=== PATIENT | female | born 1990 | race Caucasian/White ===

== ENCOUNTER 2019-11-29 17:53 | Inpatient (IN) | payer BC ==
[2019-11-29] MEDS ORDERED: Dinoprostone* 10 MG VAG.SUPP VAGINAL ONE (18:01)
[2019-11-29] MEDS ORDERED: hydrOXYzine HCL TAB* 50 MG PO PRN (20:02)
--- NOTE | 2019-11-29 20:09 | HP ---
General Information - Reason for Visit IUP at 41-11/27 here for postdates induction of labor - General Information Maternal Age: 29 Grav: 1 Para: 0 SAB: 0 IEA: 0 Estimated Due Date: 11/21/19 Determined By: LMP Maternal Blood Type and Rh: B Positive - Results this Serology/RPR Result: Non-Reactive Rubella Result: Immune HBsAg Result: Negative HIV Result: Negative GBS Culture Result: Negative Past Medical History Delivery History: See Records Delivery History Comment: Primip Pertinent Past Medical History: See Records Past Medical History Comment: Anxiety. Followed by an area therapist Pertinent Past Surgical History: See Records Past Surgical History Comment: 2013 LEEP - RUSTY 2 Pertinent Family History: See Records Family History Comment: PGF: , pancreatic cancer - Antepartal Records Antepartal Records: Reviewed, Uncomplicated Review of Systems Constitutional: Comfortable CV Complaint: No Respiratory: Shortness of Breath: No Gastrointestinal: No Nausea/Vomiting, Normal Bowel Movement Genitourinary: No Dysuria, No Bleeding, No Leaking Fluid Musculoskeletal: No Complaint, No Epigastric Pain Neurological: No Headache, No Visual Changes Movement: Normal Exam Allergies/Adverse Reactions: Allergies No Known Allergies Allergy (Verified 11/29/19 18:23) BP 129/83 HR 94 RR 18 T 98.5 SpO2 99% on RA - Measurements Height: 5 ft 3 in Weight: 170 lb Weight in lbs: 168.985443 Body Mass Index (BMI): 30.1 Pre- Weight: 125 lb Weight Gained This : 43 lbs and 0 ozs - Exam Breast: Breast Exam Deferred CVA: No CVA Tenderness Extremities: No Edema Heart: Normal Rhythm/Heart Sounds HEENT: No Significant Findings Lungs: Clear Bilaterally Rectal: Rectal Exam Deferred Reflexes: DTR 2+ Thyroid: No Thyromegaly - Abdominal Exam Abdomen Exam: Non-Tender, Fundal Height Consistent with Dates - Ultrasound/Biophysical Profile Ultrasound Status: Not Done Targeted Exam Findings See L&D Outpatient Visit Provider Note for Findings: N/A Cervical Exam: Closed Effacement: 50% Station: -2 Presenting Part: Vertex Membrane Status: Intact Sterile Speculum Exam: Not done Bleeding/Discharge: None EFM Findings - External Monitor Findings Baseline Heart Rate: 130 External Monitor Findings: Accelerations Present, No Pattern of Variable or Late Decelerations, Variability Moderate, Baseline Stable External Monitor Findings Comment: No evidence of metabolic acidemia Contractions: Irregular, Mild Contraction Frequency: q 3-8 min Assessment/Plan - Assessment IUP at 41-1/7 here for postdates induction Cervix unfavorable for induction No evidence of metabolic acidemia - Obstetrical Risk Factors Obstetrical Risk Factors: Post-Dates - Plan Plan: Cervical Ripening Plan Comment: PARQ cervical ripening with Cervidil. Pt agrees. Medication placed at 1920. Pt tolerated well. Monitor per protocol and plan removal in 12-18 hours or sooner PRN tachysystole, onset active labor, intolerance. Encouraged rest overnight. Order for Vistaril PRN sleep given. Re-evaluate in the morning or sooner PRN. Dr. Matt aware of pt presence and condition. Agrees with plan - Date/Time of Admission Date of Admission: 11/29/19 Time of Admission: 17:59
[2019-11-29 20:19] LABS: Urine Benzodiazepine Screen None Detected (None Detect); Urine Opiates Screen None Detected (None Detect)
--- NOTE | 2019-11-30 08:44 | PN ---
Progress Note - Progress Note Date of Service: 11/30/19 Note: S: Ripening/IOL for postdates. Pt is resting in bed. Notes started feeling some cramping at 0300 AM, unable to sleep through. The intense cramping has subsided , but still feeling menstrual-like cramps. Denies lof/vb, active FM. O: 99.1, 18, 120/82, HR 79 FHR: 145, +accels, no decels, moderate variability Contractions: 2-3 minutes, palpate mild VE: closed/65%/-2, firm, posterior Cervidil removed A: , IUP@41+2, not in labor GBS negative, B+ No evidence of metabolic acidemia Regular contractions, good resting tone Tolerated cervidil removal without complaint P: Actively loyda at this time. Will hold additional ripening/induction medications at this time. Monitor pt per protocol. PARQ discussion with pt about misoprostol. Agrees with plan. Will reassess in 2 hrs. Encourage movement and position changes to encourage optimal positioning Anticipate progression to active labor
--- NOTE | 2019-11-30 14:15 | PN ---
Progress Note - Progress Note Date of Service: 11/30/19 Note: S: Ripening/IOL for postdates. Pt is resting in bed with monitors on. Reports moderately painful contractions, breathing through. Denies lof/vb, active FM. and mother at bedside, supportive. O: 99.3, 18, 103/66, HR 77 FHR: 145, +accels, no decels, moderate variability Contractions: 2-3 minutes, palpate firm VE: FT/65%/-2, softening, posterior A: , IUP@41+2, not in labor GBS negative, B+ No evidence of metabolic acidemia Regular contractions, good resting tone P: PARQ discussion about starting Pitocin to augment early labor Pt declines at this time. Would like to see if natural labor progresses. Plan to reassess cervix in 2-3 hours. Encourage movement and position changes to encourage optimal positioning Anticipate progression to active labor
[2019-11-30] MEDS ORDERED: Oxytocin in LR* 20 UNITS/1,000 ML BAG IVPB SCH (15:00)
[2019-11-30 15:48] LABS: ABS Monocytes 0.5 10^3/ul (0-0.8); ABS Neutrophils 8.2 10^3/ul (1.5-7.7); Eosinophil % 0.3 %; Hematocrit 42 % (35-47); Lymphocyte % 10.2 %; Mean Corpuscular HGB Conc 34 g/dL (31-36); Mean Corpuscular Hemoglobin 34 pg (27-31); Mean Corpuscular Volume 100 fL (80-97); Mean Platelet Volume 9.4 fL (7.4-10.4); Platelet Count 193 10^3/uL (150-450); Red Blood Count 4.16 10^6 /uL (3.70-4.87); Red Cell Distribution Width 14 % (10-15); White Blood Count 9.8 10^3/uL (3.5-10.8)
[2019-11-30] MEDS: Lactated Ringers 1000 ML Bag* 1,000 ML IV ONE (19:59)
--- NOTE | 2019-11-30 20:03 | PN ---
Progress Note - Progress Note Date of Service: 11/30/19 Note: S: Ripening/IOL for postdates. Pt is OOB. Reports contractions have subsided. Denies lof/vb, active FM. and mother at bedside, supportive. O: FHR: 145, +accels, no decels, moderate variability Contractions: 4 minutes, palpate mild VE: FT/75%/-2, softening, thin external os A: , IUP@41+2, not in labor GBS negative, B+ VSS No evidence of metabolic acidemia Regular contractions, good resting tone P: PARQ discussion about starting Pitocin to augment early labor Will start low-dose Pitocin Encourage movement and position changes to encourage optimal positioning Anticipate progression to active labor
[2019-12-01] MEDS ORDERED: hydrOXYzine HCL TAB* 50 MG PO ONE ×2 (00:39→22:00)
--- NOTE | 2019-12-01 00:45 | PN ---
Progress Note - Progress Note Date of Service: 12/01/19 Note: S: Ripening/IOL for postdates. Pt is OOB. Reports contractions have subsided. Denies lof/vb, active FM. and mother at bedside, supportive. O: FHR: 145, +accels, no decels, moderate variability Contractions: 4 minutes, palpate mild VE: FT/75%/-2, softening, thin external os Pitocin @6mU A: , IUP@41+2, not in labor GBS negative, B+ VSS No evidence of metabolic acidemia Regular contractions, good resting tone No cervical change P: Will discontinue Pitocin for now so pt can sleep PO Vistaril for sleep aid Will restart ripening/IOL in the AM Anticipate progression to active labor
[2019-12-01] MEDS ORDERED: Misoprostol TAB* 100 MCG PO ONE ×2 (08:23→12:45)
--- NOTE | 2019-12-01 08:30 | PN ---
Progress Note - Progress Note Date of Service: 12/01/19 Note: Feeling rested, not many UCs. O: B/P: 90/58, P: 95, R: 16, T: 100.7 temporal, 98.1 oral on repeat FHR: baseline 135, moderate variability, +accelerations, no decelerations UCs: qq6-10 min, mild VE deferred, FT/75/-2 at midnight A: IUP at 41 3/7 weeks Category I FHR, no evidence of metabolic acidemia Not in labor Hill score: 3 P: Discussed trial of 50 mcg oral misoprostol for ripening, pt agrees Reassess PRN Anticipate SVB
--- NOTE | 2019-12-01 12:39 | PN ---
Progress Note - Progress Note Date of Service: 12/01/19 Note: S: Sitting at the edge of the bed, not feeling any UCs currently. Reports intense but infrequent UCs first 45 minutes after first dose of misoprostol at 0842. O: B/P: 112/74, P: 92, R: 16, T: 99.8 FHR: baseline 130, moderate variability, +accelerations, no decelerations UCs : q5-10 mins, mild, not felt by pt A: IUP at 41 3/7 weeks Category I FHR, no evidence of metabolic acidemia Not yet in labor P: Repeat dose of misoprostol at 1245, follow monitoring protocol Reassess PRN Anticipate SVB
[2019-12-01] MEDS ORDERED: Ondansetron INJ* 2 MG/ML VIAL IV PRN (20:46)
--- NOTE | 2019-12-01 20:56 | PN ---
Progress Note - Progress Note Date of Service: 12/01/19 Note: S: Breathing through UCs, has been having nausea and vomiting O: B/P: 114/77, P: 75, R: 20, T: 99.3 FHR: baseline 135, moderate variability, +accelerations, no decelerations UCs: q3-5, moderate to palpation VE: FT/80/-2, funneled. Very thin internal os A: IUP at 41 3/7 weeks Category I FHR, no evidence of metabolic acidemia Hill Score: 3 P: Discussed options including expectant management, pitocin augmentation, and cervidil overnight. Opts for cervidil. IV Zofran for nausea/vomiting Reassess PRN Anticipate SVB
[2019-12-01] MEDS ORDERED: Dinoprostone* 10 MG VAG.SUPP VAGINAL ONE (21:00)
[2019-12-02] MEDS ORDERED: Promethazine INJ(RESTRICTED)* 25 MG/ML 1 ML VIAL IV ONE (05:30)
[2019-12-02] MEDS ORDERED: fentaNYL* 50 MCG/ML 2 ML VIAL (100 MCG VIAL) IV SLOW PU ONE (05:30)
--- NOTE | 2019-12-02 08:31 | PN ---
Progress Note - Progress Note Date of Service: 12/02/19 Note: S: Breathing through UCs, able to rest somewhat after pain medication O: B/P: 105/59, P: 74, R: 20, T: 99.0 FHR: baseline 135, moderate variability, +accelerations, no decelerations UCs: q5, moderate to palpation, some coupling VE: Deferred, cervidil in place (last check /-2, funneled, very thin external os) A: IUP at 41 5/7 weeks Category I FHR, no evidence of metabolic acidemia Hill Score: 3 P: Discussed options including Pitocin augmentation, misoprostol, and potentially if no dilation Will decide after cervidil removed at 1000 and repeat VE Anticipate SVB
--- NOTE | 2019-12-02 13:34 | PN ---
Progress Note - Progress Note Date of Service: 12/02/19 Note: S: Breathing through UCs. Lost mucous plug in bath. Reports bloody show. Contractions 3-5 minutes. O: FHR: baseline 125, moderate variability, +accelerations, no decelerations UCs: q3-5, moderate to palpation VE: 4/100/-1, AROM, meconium A: IUP at 41 5/7 weeks Category I FHR, no evidence of metabolic acidemia P: Discussed augmenting labor with pitocin, pt would like to see if her body will continue to contract and labor on her own Plan for assessment at 1500, if contractions still 3-5, will consider Pitocin Epidural prn Anticipate SVB
[2019-12-02] MEDS: Lactated Ringers 1000 ML Bag* 1,000 ML IV ONE (16:41)
--- NOTE | 2019-12-02 16:49 | PN ---
Progress Note - Progress Note Date of Service: 12/02/19 Note: S: Breathing through UCs. Using nitrous oxide with inadequate pain relief. Requesting vaginal exam and epidural. O: FHR: baseline 125, moderate variability, +accelerations, no decelerations UCs: q3-5, moderate to palpation VE: 4.5/100/-1 A: IUP at 41 5/7 weeks Category I FHR, no evidence of metabolic acidemia P: Epidural now Notified anesthesia
[2019-12-02] MEDS ORDERED: Lactated Ringers 1000 ML Bag* 1,000 ML IV SCH ×2 (17:00→20:00)
[2019-12-02] MEDS ORDERED: OBEPIDURAL* 250 ML EPIDURAL ONE (17:01)
[2019-12-02] MEDS ORDERED: fentaNYL* 50 MCG/ML 2 ML VIAL (100 MCG VIAL) IV SLOW PU PRN (18:31)
[2019-12-02] MEDS ORDERED: Bupivacaine 0.25% SDV PF* 10 ML VIAL INJ ONE (18:41)
[2019-12-02] MEDS ORDERED: Lactated Ringers 1000 ML Bag* 1,000 ML IV ONE (19:08)
[2019-12-02] MEDS ORDERED: Sodium Citrate/Citric Acid* 15 ML UDC PO PRN (19:08)
[2019-12-02] MEDS ORDERED: Phenylephrine 40 MCG/ML SYRINGE IV PUSH PRN ×2 (19:08)
[2019-12-02] MEDS ORDERED: EPHEDrine (Pressors)* 50 MG/ML VIAL IV PUSH PRN ×2 (19:08)
[2019-12-02] MEDS ORDERED: Famotidine TAB* 20 MG PO PRN (19:08)
[2019-12-02] MEDS ORDERED: Lactated Ringers 1000 ML Bag* 500 ML IV PRN ×2 (19:08)
[2019-12-02] MEDS ORDERED: Oxytocin in LR* 20 UNITS/1,000 ML BAG IVPB ONE (19:45)
--- NOTE | 2019-12-02 19:47 | PN ---
Progress Note - Progress Note Date of Service: 12/02/19 Note: S: Pt is comfortable with epidural, resting in bed. at bedside and supportive. O: FHR: baseline 120, moderate variability, +accelerations, no decelerations UCs: q2-5, moderate to palpation VE: 5/100/-1 A: IUP at 41 5/7 weeks Category I FHR, no evidence of metabolic acidemia P: VE prn Anticipate progression to
[2019-12-02] MEDS ORDERED: OBEPIDURAL* 250 ML EPIDURAL SCH (20:00)
[2019-12-02] MEDS ORDERED: Oxytocin in LR* 20 UNITS/1,000 ML BAG IVPB SCH (20:00)
--- NOTE | 2019-12-03 02:30 | PN ---
Progress Note - Progress Note Date of Service: 12/03/19 Note: S: Pt is comfortable with epidural, resting in bed. Feeling pressure with contractions. at bedside and supportive. O: FHR: baseline 145, moderate variability, +accelerations, no decelerations UCs: q2-5, strong VE: 8/100/0 Pitocin@10mU A: IUP at 41 6/7 weeks Category I FHR, no evidence of metabolic acidemia P: VE in 2 hours or sooner prn Anticipate progression to
[2019-12-03] MEDS ORDERED: ceFOXitin 2 GM IVPREMIX* 2 GM/50 ML BAG ONE (06:28)
[2019-12-03] MEDS ORDERED: Glycerin ADULT SUPP PR PRN (07:16)
[2019-12-03] MEDS ORDERED: Acetaminophen TAB* 325 MG PO PRN (07:16)
[2019-12-03] MEDS ORDERED: Witch Hazel PAD* JAR TOPICAL PRN (07:16)
[2019-12-03] MEDS ORDERED: Dibucaine 1% 28.35 GM TUBE PR PRN (07:16)
--- NOTE | 2019-12-03 07:21 | PROCNOTE ---
[facility] OB: Delivery Note - Delivery A Date of : 12/03/19 Time of : 06:05 Gary Sex: Female Weight at : 8 lb 7 oz Score 1 Minute: 9 Score 5 Minutes: 9 Gestational Age in Weeks and Days at Delivery: 41 Weeks and 5 Days Delivery Method: Spontaneous Vaginal Labor: Induced Amniotic Fluid: Meconium Estimated Blood Loss: 600 Anesthesia/Analgesia: IM/IV, CEI for Labor, Nitrous-Labor Delivered By: Monae Pierson Nursery Level of Nursery: Regular/Bedside - Perineum Perineal Injury: 2nd Degree Perineal Injury Comment: left labium majora Perineal Repair: By Delivering Practioner - Events Delivery Events of Note: Pitocin During Labor, Full Course of Antibiotics - For manual removal of placenta, Post- Bleeding - Meds Given, Retained Placenta , Manual Removal of Placenta - Risk for Falls Delivered OB Patient- Risk for Falls: Heavy Bleeding Fall Risk: Patient is at High Risk for Falls - Additional Delivery Notes Additional Delivery Notes: Normal spontaneous vertex delivery of live female, 8lb, 7oz and Apgars 9/9. Delivered left occipital-anterior (MAGDY), with a compound arm. Body delivered without difficulty. Baby placed on mothers abdomen. Cord clamped and cut by FOB after pulsations ceased. Densely adhered placenta with anterior placentation. Dr. Alcides Mcdermott MD called for removal. Appears to be an abnormal placenta, though intact, with a 3vc. Sending placenta to pathology. Antibiotics given following manual removal. Perineum and vagina inspected - left labium laceration and a second degree perineal laceration noted. Repaired in the usual fashion, with CEI infusing under local anesthesia. Anatomy restored; lacerations hemostatic. EBL 600mL. Mom and baby stable at time of note. Baby attempting to breastfeed.
[2019-12-03] MEDS ORDERED: Oxytocin in LR* 20 UNITS/1,000 ML BAG IVPB SCH (08:00)
[2019-12-03] MEDS ORDERED: Lactated Ringers 1000 ML Bag* 1,000 ML IV SCH (08:00)
--- NOTE | 2019-12-03 08:18 | OP ---
DATE OF SURGERY: 12/03/19 - ROOM #108 DATE OF : 88 SURGEON: Niyah Mcdermott MD ANESTHESIA: Epidural. PRE-OP DIAGNOSIS: Term delivery, retained placenta. POST-OP DIAGNOSES: Term delivery, retained placenta. OPERATIVE PROCEDURE: Manual retraction of retained placenta. URINE OUTPUT: Not recorded. ESTIMATED BLOOD LOSS: 600 cc. FINDINGS: Revealed a densely adherent anterior uterine wall placentation. COMPLICATIONS: None apparent. DISPOSITION: Stable, in delivery room with baby. DESCRIPTION OF PROCEDURE: The patient underwent a verbal consent for manual extraction of retained placenta. The patient with some bleeding noted at the time of the beginning of the extraction. The patient had adequate epidural for anesthesia and using a sleeping motion, the plane was developed between the anterior uterine wall and the placenta. The placenta was removed and noted to be intact on evaluation. Sweeps x2 were performed after removal of placenta, confirming removal of all membranes and placental tissue. The patient tolerated the manual extraction well. Recommended with subsequent deliveries MD present for delivery as this is likely to happen again. The patient and are also aware of the rare complication of accreta. However, there was no evidence of this on today's manual extraction of placenta. [id number]/[facility] #: [id number] MTDD
[2019-12-03] MEDS ORDERED: Simethicone TAB* 80 MG TAB.CHEW PO SCH (08:30)
[2019-12-03] MEDS: Docusate CAP* 100 MG PO SCH ×3 (09:10→22:08)
[2019-12-03] MEDS: Ibuprofen TAB* 600 MG PO SCH ×3 (09:20→20:06)
[2019-12-03] MEDS ORDERED: Lidocaine 1% INJ* 10 MG/ML 30 ML SDV ONE (09:28)
[2019-12-04] MEDS: Ibuprofen TAB* 600 MG PO SCH ×2 (02:19→08:06)
[2019-12-04 08:13] VITALS: BP 97/65
[2019-12-04 08:35] LABS: ABS Basophils 0.1 10^3/ul (0-0.2); ABS Eosinophils 0.1 10^3/ul (0-0.6); ABS Lymphocytes 2.6 10^3/ul (1.0-4.8); ABS Neutrophils 10.1 10^3/ul (1.5-7.7); Eosinophil % 0.9 %; Hematocrit 33 % (35-47); Hemoglobin 11.2 g/dL (12.0-16.0); Lymphocyte % 18.4 %; Mean Corpuscular HGB Conc 34 g/dL (31-36); Mean Corpuscular Hemoglobin 34 pg (27-31); Mean Corpuscular Volume 100 fL (80-97); Platelet Count 170 10^3/uL (150-450); Red Blood Count 3.27 10^6 /uL (3.70-4.87); Red Cell Distribution Width 14 % (10-15); White Blood Count 13.9 10^3/uL (3.5-10.8)
[2019-12-04] MEDS: Docusate CAP* 100 MG PO SCH (08:59)
[2019-12-04] MEDS ORDERED: Ferrous Gluconate TAB* 324 MG TAB PO SCH (09:00)
[2019-12-04] MEDS ORDERED: medroxyPROGESTERone ACETATE (DEPOT)* 150 MG/ML 1 ML IM ONE (12:51)
== END 2019-12-04 13:49 | disposition home or self-care (01) | DRG 560 ==
LOC: MCHOBOUT 17:53 → MCHOB 17:59
PROVIDERS: ADMIT Midwife; ATTEND Advanced Practice Midwife
PROC: 10E0XZZ Delivery of Products of Conception, External Approach (ICD-10-PCS; principal; 2019-12-03)
PROC: 3E033VJ Introduction of Other Hormone into Peripheral Vein, Percutaneous Approach (ICD-10-PCS; 2019-12-03)
PROC: 10907ZC Drainage of Amniotic Fluid, Therapeutic from Products of Conception, Via Natural or Artificial Opening (ICD-10-PCS; 2019-12-03)
PROC: 0KQM0ZZ Repair Perineum Muscle, Open Approach (ICD-10-PCS; 2019-12-03)
PROC: 0UQMXZZ Repair Vulva, External Approach (ICD-10-PCS; 2019-12-03)
DX: O48.0 Post-term pregnancy (principal); O72.2 Delayed and secondary postpartum hemorrhage; Z37.0 Single live birth; O99.344 Other mental disorders complicating childbirth; F41.9 Anxiety disorder, unspecified; O77.0 Labor and delivery complicated by meconium in amniotic fluid; O70.1 Second degree perineal laceration during delivery; Z3A.41 41 weeks gestation of pregnancy
CPT/HCPCS: 36415; 80307; 85025; 86850; 86900; 86901; 88307; A9270-GY; J0694; J1050; J2405; J2550; J3010; J3490; S0191

== ENCOUNTER 2023-11-28 05:03 | Inpatient (IN) ==
[2023-11-28] MEDS ORDERED: Nalbuphine 10 MG/ML 1 ML VIAL IV PRN (08:30)
[2023-11-28] MEDS ORDERED: Lactated Ringers 1000 ml BAG 1,000 ML IV ONE (08:30)
[2023-11-28] MEDS ORDERED: Lidocaine 1% VIAL 10 MG/ML 30 ML VIAL INJ PRN (08:30)
[2023-11-28] MEDS ORDERED: Promethazine INJ(RESTRICTED) 25 MG/ML 1 ml VIAL IV PRN (08:30)
[2023-11-28] MEDS ORDERED: Buffered Lidocaine 1% SYRIN 1 ml INTRADERM ONE (08:30)
[2023-11-28] MEDS ORDERED: Oxytocin in LR 20,000 MILLI.UNIT/1,000 ML BAG IV SCH ×2 (08:30→21:20)
[2023-11-28 09:03] LABS: ABS Eosinophils 0.1 10^3/uL (0.0-0.5); ABS Lymphocytes 1.5 10^3/uL (1.0-4.8); ABS Monocytes 0.6 10^3/uL (0.0-0.9); ABS Neutrophils 4.3 10^3/uL (1.5-7.6); Eosinophil % 1.1 %; Hematocrit 35.7 % (35-45); Hemoglobin 12.2 g/dL (11.5-14.3); Mean Corpuscular Hemoglobin 33.3 pg (27-33); Mean Corpuscular Hgb Conc 34.1 g/dL (31-36); Mean Corpuscular Volume 97.6 fL (80-97); Mean Platelet Volume 8.8 fL (7.5-11.2); Platelet Count 197 10^3/uL (150-450); Red Blood Count 3.66 10^6/uL (3.63-4.92); Red Cell Distribution Width 14.1 % (12-17); White Blood Count 6.5 10^3/uL (3.8-11.8)
[2023-11-28 09:26] LABS: Urine Benzodiazepine Screen None Detected (None Detect); Urine Cannabinoids Screen None Detected (None Detect); Urine Opiates Screen None Detected (None Detect)
[2023-11-28] MEDS: Lactated Ringers 1000 ml BAG 1,000 ML IV SCH (15:43)
[2023-11-29] MEDS ORDERED: Calcium Carb (TUMS) 500 mg CHEW TAB PO ONE (01:37)
[2023-11-29] MEDS: Lactated Ringers 1000 ml BAG 1,000 ML IV SCH (01:53)
[2023-11-29] MEDS ORDERED: Lidocaine 1.5% EPI 1:200,000 30 ML SDV ONE (03:00)
[2023-11-29] MEDS ORDERED: OBEPIDURAL (200 ML) 200 ML EPIDURAL ONE (03:00)
[2023-11-29] MEDS ORDERED: fentaNYL 100 mcg/2 ml 50 MCG/ML VIAL ONE (03:08)
[2023-11-29] MEDS ORDERED: Phenylephrine 40 mcg/mL 10mL (400mcg) SYRINGE IV PUSH PRN ×2 (03:48)
[2023-11-29] MEDS ORDERED: Sodium Citrate/Citric Acid LIQ 15 ML UDC PO PRN (03:48)
[2023-11-29] MEDS ORDERED: Lactated Ringers 1000 ml BAG 1,000 ML IV ONE (03:48)
[2023-11-29] MEDS ORDERED: OBEPIDURAL (200 ML) 200 ML EPIDURAL SCH (04:00)
[2023-11-29] MEDS ORDERED: Methylergonovine 0.2 mg AMPULE 1 ml AMP ONE (06:51)
[2023-11-29] MEDS ORDERED: ceFAZolin 2 GM PREMIX 2 GM/50 ML BAG ONE (07:23)
[2023-11-29] MEDS ORDERED: Witch Hazel PAD JAR TOPICAL PRN (07:59)
[2023-11-29] MEDS ORDERED: Glycerin ADULT 2.4 gm SUPP PR PRN (07:59)
[2023-11-29] MEDS ORDERED: Oxytocin in LR 20,000 MILLI.UNIT/1,000 ML BAG IV SCH (08:00)
[2023-11-29] MEDS ORDERED: Lactated Ringers 1000 ml BAG 1,000 ML IV SCH (08:00)
[2023-11-29] MEDS ORDERED: ceFAZolin 2 GM PREMIX 2 GM/50 ML BAG IV ONE (10:00)
[2023-11-29] MEDS: Dibucaine 1% OINT 28.35 GM TUBE PR PRN (10:11)
[2023-11-30 08:15] LABS: ABS Eosinophils 0.1 10^3/uL (0.0-0.5); ABS Monocytes 0.8 10^3/uL (0.0-0.9); Eosinophil % 0.7 %; Hematocrit 33.8 % (35-45); Hemoglobin 11.3 g/dL (11.5-14.3); Lymphocyte % 15.6 %; Mean Corpuscular Hemoglobin 33.2 pg (27-33); Mean Corpuscular Hgb Conc 33.3 g/dL (31-36); Mean Corpuscular Volume 99.4 fL (80-97); Platelet Count 170 10^3/uL (150-450); Red Cell Distribution Width 14.5 % (12-17); White Blood Count 12.9 10^3/uL (3.8-11.8)
[2023-11-30] MEDS: Dibucaine 1% OINT 28.35 GM TUBE PR PRN (21:15)
[2023-12-01 09:03] VITALS: BP 115/69
[2023-12-01] MEDS ORDERED: medroxyPROGESTERone ACETATE 150 MG/ML VIAL IM ONE (10:59)
== END 2023-12-01 13:47 | disposition home or self-care (01) | DRG 541 ==
LOC: MCHOB 08:15
PROVIDERS: ADMIT Obstetrics & Gynecology; ATTEND Obstetrics & Gynecology